=== PATIENT | female | born 1965 | race Two or more races ===

== ENCOUNTER 2017-06-11 12:28 | Emergency (ER) | payer MEDICAID ==
[~2017-06-11] VITALS: Ht 162.6 cm; Wt 79.8 kg
[~2017-06-11 12:28] MED LIST: FLUO20CA19 PO; HYDR25TA4 PO
[2017-06-11 13:00] VITALS: BP 150/89
== END 2017-06-11 14:17 | disposition home or self-care (01) ==
LOC: ER 12:28
DX: J06.9 Acute upper respiratory infection, unspecified (principal); I10 Essential (primary) hypertension; M19.90 Unspecified osteoarthritis, unspecified site